=== PATIENT | female | born 1995 ===

== ENCOUNTER 2024-12-03 06:41 | Outpatient (REF) | payer OTHER, SELFPAY ==
--- NOTE | ~2024-12-03 | US_ITS ---
EXAMINATION: US PELVIS TRANSABDOMINAL AND TRANSVAGINAL HISTORY: CHECK IUD COMPARISON: There are no prior studies for comparison. TECHNIQUE: Transabdominal and endovaginal real-time 2D piedra-scale ultrasound was performed. FINDINGS: Uterus: The uterus is normal in size, measuring 8.1 x 2.1 x 4.6 cm. Myometrium has a normal echotexture. No fibroids are identified. Endometrium: The endometrial stripe measures 2 mm in thickness. An IUD is noted, the body of which is in the appropriate position in the endometrial cavity. However, the right arm appears at a more acute angle than expected. Right ovary: The right ovary measures 3.5 x 2.0 x 2.3 cm. The right ovary is normal in size and echotexture. Left ovary: The left ovary measures 2.7 x 2.4 x 1.7 cm. The left ovary is normal in size and echotexture. Pelvic fluid: none. US/US pelvic and transvaginal IMPRESSION: The right arm of the IUD appears at a more acute angle than expected. Otherwise unremarkable pelvic ultrasound. Electronically signed by: Yoni Strong MD 12/04/2024 07:11 AM EDT
== END 2024-12-03 06:42 | disposition home or self-care (01) ==
LOC: HO.UMASIMG 06:41
PROVIDERS: Visit Provider Nurse Practitioner Women's Health
DX: N93.0 Postcoital and contact bleeding (principal)
CPT/HCPCS: 76830; 76856

== ENCOUNTER → 2024-12-03 15:30 | Outpatient (BNV) | payer OTHER, SELFPAY | PROVIDERS: Visit Provider Radiology Diagnostic Radiology | DX: T83.32XA Displacement of intrauterine contraceptive device, initial encounter (principal) | CPT/HCPCS: 76830; 76856 ==

== ENCOUNTER 2024-12-29 06:30 | Outpatient (REF) | payer OTHER, SELFPAY ==
--- NOTE | ~2024-12-29 | US_ITS ---
EXAMINATION: US PELVIS TRANSABDOMINAL AND TRANSVAGINAL HISTORY: CHECK IUD COMPARISON: Comparison is made with the prior examination dated 12/03/2024. TECHNIQUE: Transabdominal and endovaginal real-time 2D piedra-scale ultrasound was performed. FINDINGS: Uterus: The uterus is normal in size, measuring 9.4 x 3.2 x 4.8 cm. Myometrium has a normal echotexture. No fibroids are identified. Endometrium: The endometrial stripe is obscured by the presence of an IUD which appears in appropriate position in the endometrial canal. Right ovary: The right ovary measures 3.5 x 2.1 x 1.9 cm. The right ovary is normal in size and echotexture. Left ovary: The left ovary measures 3.5 x 3.2 x 3.3 cm. The left ovary is normal in size and echotexture. There is a dominant follicle measuring 2.6 x 2.7 x 2.3 cm. Pelvic fluid: none. US/US pelvic and transvaginal IMPRESSION: Unremarkable pelvic ultrasound. The IUD appears in appropriate position in the endometrial canal. Electronically signed by: Yoni Strong MD 12/30/2024 07:03 AM EDT
== END 2024-12-29 06:31 | disposition home or self-care (01) ==
LOC: HO.UMASIMG 06:30
PROVIDERS: Visit Provider Nurse Practitioner Women's Health
DX: Z30.431 Encounter for routine checking of intrauterine contraceptive device (principal)
CPT/HCPCS: 76830; 76856

== ENCOUNTER → 2024-12-29 13:00 | Outpatient (BNV) | payer OTHER, SELFPAY | PROVIDERS: Visit Provider Radiology Diagnostic Radiology | DX: Z30.431 Encounter for routine checking of intrauterine contraceptive device (principal) | CPT/HCPCS: 76830; 76856 ==